=== PATIENT | male | born 1990 | race African-American/Black ===

== ENCOUNTER 2017-09-17 02:00 | Emergency (ER) | payer OTHER ==
[~2017-09-17] VITALS: Ht 172.7 cm; Wt 96.2 kg
[2017-09-17 03:33] VITALS: BP 162/108
[2017-09-17 03:43] LABS: SOURCE URINE
[2017-09-17 13:51] LABS: CHLAMYDIA TRACHOMATIS POSITIVE; NEISSERIA GONORRHOEAE NEGATIVE
== END 2017-09-17 06:36 | disposition home or self-care (01) ==
LOC: EME 02:00
PROVIDERS: Physician Assistant
DX: N34.2 Other urethritis (principal); Z20.2 Contact with and (suspected) exposure to infections with a predominantly sexual mode of transmission
CPT/HCPCS: 87491; 87591; 99281; 99283; J0696

== ENCOUNTER 2017-11-22 17:14 | Emergency (ER) | payer OTHER ==
[~2017-11-22] VITALS: Ht 172.7 cm; Wt 98.7 kg
[2017-11-22 17:22] VITALS: BP 138/83
== END 2017-11-22 19:15 | disposition left against medical advice (07) ==
LOC: EME 17:14
DX: M25.462 Effusion, left knee (principal); M25.461 Effusion, right knee; M25.562 Pain in left knee; M25.561 Pain in right knee; Z53.21 Procedure and treatment not carried out due to patient leaving prior to being seen by health care provider